=== PATIENT | male | born 1970 | race Caucasian/White ===

== ENCOUNTER 2017-02-06 20:33 | Observation (INO) | payer OTHER ==
--- NOTE | 2017-02-06 20:54 | EDPHY ---
H & P Stated Complaint: cat bite left hand 24 hrs ago with streaking, 3 doses of Augmentin HPI/ROS: Chief complaint: Cat bite to left arm with possible infection History of present illness: This is a 46-year-old male who presents to the emergency department for a cat bite to his left hand and believes he is developing an infection. Patient was bit on the left palm approximately a day ago. He did see his doctor and was started on Augmentin and has taken 3 doses already. However he is having increasing pain, swelling and redness to the palm. He has now noted red streaking up the arm. He states the cat is healthy. Immunizations are up-to-date. He is not sure if his tetanus is up-to- date. He denies associated signs or symptoms including no fevers, no chills, no abnormal coolness or paresthesias in the arm, he is still moving the arm well. No other complaints. Review of systems: A 10 point review of systems was obtained and other than described above was negative - Personal History Current Tetanus/Diphtheria Vaccine: No - Medical/Surgical History Hx Asthma: No Hx Chronic Respiratory Disease: No Hx Diabetes: No Hx Cardiac Disease: No Hx Renal Disease: No Hx Cirrhosis: No Hx Alcoholism: No Hx HIV/AIDS: No Hx Splenectomy or Spleen Trauma: No Other PMH: no PMH or PSH - Social History Smoking Status: Never smoked - Physical Exam Exam: General Appearance: Alert, Nontoxic. Eyes: Pupils equal and round no injection. Respiratory: Chest is nontender, lungs are clear to auscultation. Cardiac: regular rate and rhythm. Gastrointestinal: Abdomen is soft and nontender, no masses, bowel sounds normal. Musculoskeletal: Neck is supple and nontender. Extremities have full range of motion and are nontender. Skin: Puncture wounds to the thenar eminence since of the left hand consistent with bite. There is associated erythema and edema. There is lymphangitis to the level of the elbow. No induration or fluctuance to suggest drainable abscess. Constitutional: Initial Vital Signs Temperature (C) 36.9 C 02/06/17 20:37 Heart Rate 78 02/06/17 20:37 Respiratory Rate 16 02/06/17 20:37 Blood Pressure 139/86 H 02/06/17 20:37 O2 Sat (%) 98 02/06/17 20:37 O2 Delivery Mode Room Air Allergies/Adverse Reactions: morphine Allergy (Unknown, Verified 06/07/12 03:51) Home Medications: Medication Instructions Recorded Amoxicillin/Clavulanate Pot 875 mg PO BID 02/06/17 [Augmentin 875 MG TAB (*)] Herbals/Supplements -Info Only 1 ea PO DAILY 02/06/17 Multivitamins [Multivitamin (*)] 1 each PO DAILY 02/06/17 Medical Decision Making - Diagnostics Imaging Results: Imaging Impressions Hand X-Ray 02/06/17 20:55 Impression: Negative left hand radiographs. Imaging: I viewed and interpreted images myself ED Course/Re-evaluation: Patient is discussed with my secondary supervising physician Dr. Vasyl Chavira. Patient presents to the emergency department with an apparent cellulitis of the left hand with lymphangitis. He appears to be failing outpatient therapy as he has already been on Augmentin. Blood studies are obtained, initial chemistry panel likely spurus result, it is redrawn and normal. X-ray is obtained and negative for retained foreign body or other findings. Patient started on Unasyn. Patient is admitted to the hospitalist service for further evaluation and care. Differential Diagnosis: included but not limited to cellulitis, lymphangitis, abscess formation, unlikely necrotizing fasciitis - Data Points Medications Given: Discontinued Medications Sodium Chloride (Ns) 1,000 mls @ 0 mls/hr IV ONCE ONE; Wide Open PRN Reason: Protocol Stop: 02/06/17 20:56 Last Admin: 02/06/17 21:11 Dose: 1,000 mls Ampicillin Sodium/Sulbactam (Sodium 3 gm/ Sodium Chloride) 100 mls @ 200 mls/ hr IV EDNOW ONE PRN Reason: Protocol Stop: 02/06/17 21:24 Last Admin: 02/06/17 21:40 Dose: 100 mls Departure - Departure Disposition: [facility] Clinical Impression: Lymphangitis Cellulitis Qualifiers: Site of cellulitis: extremity Site of cellulitis of extremity: upper extremity Laterality: left Qualified Code(s): L03.114 - Cellulitis of left upper limb Condition: Good
[2017-02-06] MEDS ORDERED: AMPICILLIN/SULBACTAM 3 GM in NS 100 ML IV ONE (20:55)
[2017-02-06] MEDS ORDERED: NS 1,000 ML IV ONE (20:55)
[2017-02-06 21:39] LABS: % IMMATURE GRANULYOCYTES 0.4 % (0.0-1.1); ABSOLUTE IMMATURE GRANULOCYTES 0.04 10^3/uL (0.00-0.10); ADD DIFF? NO; ADD MORPH? NO; ADD SCAN? NO; ATYPICAL LYMPHOCYTE FLAG 20 (0-99); FRAGMENT RBC FLAG 0 (0-99); HEMATOCRIT 37.3 % (40.0-51.0); HEMOGLOBIN 12.9 g/dL (13.7-17.5); LEFT SHIFT FLG 0 (0-99); LIPEMIA HEMOLYSIS FLAG 90 (0-99); MEAN CELL HEMOGLOBIN 34.7 pg (27.9-34.1); MEAN CELL HEMOGLOBIN CONCENTR. 34.6 g/dL (32.4-36.7); MEAN CELL VOLUME 100.3 fL (81.5-99.8); MEAN PLATELET VOLUME 10.6 fL (8.7-11.7); PLATELET CLUMPS FLAG 10 (0-99); PLATELET COUNT 192 10^3/uL (150-400); RED BLOOD CELL COUNT 3.72 10^6/uL (4.40-6.38); RED CELL DISTRIBUTION WIDTH 12.8 % (11.5-15.2)
[2017-02-06] MEDS ORDERED: NS 50 ML BAG IV ONE (22:01)
[2017-02-06] MEDS ORDERED: ACETAMINOPHEN 325 MG TAB PO PRN (22:04)
[2017-02-06] MEDS ORDERED: ONDANSETRON 4 MG/2 ML VIAL IVP PRN (22:04)
[2017-02-06] MEDS ORDERED: TEMAZEPAM 15 MG CAP PO PRN (22:04)
[2017-02-06 22:05] LABS: ANION GAP 7 mEq/L (8-16); CALCIUM 6.1 mg/dL (8.5-10.4); CARBON DIOXIDE 18 mEq/l (22-31); CHLORIDE 114 mEq/L (97-110); CREATININE 0.7 mg/dL (0.7-1.3); GLOMERULAR FILTRATION RATE > 60; GLUCOSE 73 mg/dL (70-100); SODIUM 139 mEq/L (134-144)
[2017-02-06 22:08] LABS: POTASSIUM 2.3 mEq/L (3.5-5.2)
[2017-02-06] MEDS ORDERED: POTASSIUM Cl (KCl) 100 ML IV ONE (22:09)
[2017-02-06 22:45] LABS: ANION GAP 10 mEq/L (8-16); CALCIUM 9.5 mg/dL (8.5-10.4); CARBON DIOXIDE 23 mEq/l (22-31); CHLORIDE 101 mEq/L (97-110); GLOMERULAR FILTRATION RATE > 60; GLUCOSE 97 mg/dL (70-100); MAGNESIUM 1.8 mg/dL (1.6-2.3); POTASSIUM 3.8 mEq/L (3.5-5.2); SODIUM 134 mEq/L (134-144)
[2017-02-06 22:46] LABS: % IMMATURE GRANULYOCYTES 0.5 % (0.0-1.1); ABSOLUTE IMMATURE GRANULOCYTES 0.06 10^3/uL (0.00-0.10); ADD DIFF? NO; ADD MORPH? NO; ADD SCAN? NO; ATYPICAL LYMPHOCYTE FLAG 10 (0-99); FRAGMENT RBC FLAG 0 (0-99); HEMATOCRIT 39.8 % (40.0-51.0); HEMOGLOBIN 13.9 g/dL (13.7-17.5); LEFT SHIFT FLG 0 (0-99); LIPEMIA HEMOLYSIS FLAG 90 (0-99); MEAN CELL HEMOGLOBIN 34.7 pg (27.9-34.1); MEAN CELL HEMOGLOBIN CONCENTR. 34.9 g/dL (32.4-36.7); MEAN CELL VOLUME 99.3 fL (81.5-99.8); MEAN PLATELET VOLUME 10.8 fL (8.7-11.7); PLATELET CLUMPS FLAG 0 (0-99); PLATELET COUNT 217 10^3/uL (150-400); RED BLOOD CELL COUNT 4.01 10^6/uL (4.40-6.38); RED CELL DISTRIBUTION WIDTH 12.7 % (11.5-15.2)
--- NOTE | 2017-02-06 22:54 | GHP ---
[f rep st] HISTORY AND PHYSICAL DATE OF ADMISSION: 02/06/2017 CHIEF COMPLAINT: Cat bite. HISTORY OF PRESENT ILLNESS: This is a 46-year-old male with no significant past medical history, was bit by his own cat which he has had for about a month , in his left hand. After being bit at approximately 6:30 last night, he took a dose of Augmentin 500/125, that he had left over from a previous illness. This morning, he went to see his primary care doctor, who prescribed Augmentin, which he has taken 2 doses of today. This evening, he noticed redness extending up his left arm which brought him into the emergency department for further evaluation. Currently, he describes a moderate amount of pain in his left thumb, which is improved with a half of a Vicodin. He has not had any fevers or chills. He denies any numbness or weakness in his hand. PAST MEDICAL HISTORY: Spontaneous pneumothoraces as a child, treated with chest tubes. HOME MEDICATIONS: Reviewed, refer to [facility] for details. ALLERGIES: Morphine. SOCIAL HISTORY: He drinks alcohol occasionally. He denies any tobacco or illicit drug use. FAMILY HISTORY: Reviewed and noncontributory. REVIEW OF SYSTEMS: Comprehensive 10-point Review of Systems was done and was negative, except for as mentioned in the HPI. PHYSICAL EXAM: VITAL SIGNS: Blood pressure 139/86, pulse 78, respiratory rate 16, O2 saturation 98% on room air. Temperature afebrile. GENERAL: No acute distress. HEAD: Normocephalic, atraumatic. EYES: PERRLA. Sclerae anicteric. MOUTH: Moist mucous membranes. NECK: Supple. No lymphadenopathy. CARDIOVASCULAR: S1,S2. No murmurs, rubs, clicks, gallops. No JVD. No extremity edema. PULMONARY: Lungs are clear to auscultation and percussion bilaterally. No wheezes, rales, or rhonchi. ABDOMEN: Soft, nontender, nondistended. No guarding or rebound tenderness. Normoactive bowel sounds. EXTREMITIES: No clubbing or cyanosis. NEURO: Cranial nerves 2-12 grossly intact. No focal motor or sensory deficits. SKIN: There is erythema over his left thenar eminence with multiple puncture wounds. He also has multiple scratches over his forearm. There is lymphangitic streaking over the volar aspect of his forearm and a small amount of streaking over the volar surface of the upper arm. There is no axillary lymphadenopathy. There is good range of motion of the thumb. DIAGNOSTICS: WBC is 10.7, hemoglobin 12.9, hematocrit 37.3, platelets 192. Chemistries pending. Hand x-ray, which I visualized and personally interpreted , was negative for gas or foreign bodies. There was no fracture. ASSESSMENT AND PLAN: 1. This is a 46-year-old male presenting with left thenar eminence cat bite cellulitis with lymphangitic streaking without signs of sepsis. Plan: The patient will be admitted to the hospital where we will start IV Unasyn. He has failed outpatient treatment with Augmentin. We will monitor closely for worsening pain and cellulitis or abscess. We will defer consulting Hand Surgery at this time but this may need to be done in the morning. 2. Macrocytic anemia with reported history of occasional alcohol use. Plan: We will check iron studies and repeat a CBC in the morning. /[id number]/MODL and [id number], 02/06/17, [address] [facility]
[2017-02-06] MEDS ORDERED: TDAP ADULT 0.5 ML INJ (BOOSTRIX) IM ONE (23:02)
[2017-02-07] MEDS ORDERED: AMPICILLIN/SULBACTAM 3 GM in NS 100 ML IV SCH
[2017-02-07] MEDS: AMPICILLIN/SULBACTAM 3 GM in NS 100 ML IV SCH ×3 (03:35→15:26)
[2017-02-07 05:36] LABS: % IMMATURE GRANULYOCYTES 0.3 % (0.0-1.1); ABSOLUTE IMMATURE GRANULOCYTES 0.03 10^3/uL (0.00-0.10); ADD DIFF? NO; ADD MORPH? NO; ADD SCAN? NO; ATYPICAL LYMPHOCYTE FLAG 10 (0-99); FRAGMENT RBC FLAG 0 (0-99); HEMATOCRIT 39.8 % (40.0-51.0); LEFT SHIFT FLG 0 (0-99); LIPEMIA HEMOLYSIS FLAG 90 (0-99); MEAN CELL HEMOGLOBIN CONCENTR. 35.2 g/dL (32.4-36.7); MEAN CELL VOLUME 99.5 fL (81.5-99.8); MEAN PLATELET VOLUME 10.3 fL (8.7-11.7); PLATELET CLUMPS FLAG 0 (0-99); PLATELET COUNT 204 10^3/uL (150-400); RED CELL DISTRIBUTION WIDTH 12.8 % (11.5-15.2)
[2017-02-07] MEDS: oxyCODONE IR 5 MG TAB PO PRN ×2 (08:44→14:35)
[2017-02-07 08:50] VITALS: TEMP 97.8
[2017-02-07 11:44] VITALS: BP 106/78; PULSE 73; RESP 18; O2SAT 99
--- NOTE | 2017-02-07 17:12 | PDDCSUM ---
Discharge Summary Discharge Summary: DISCHARGE DIAGNOSES: -Cat bite related infection of the left hand with cellulitis and lymphangitic streaking -No clinical evidence of abscess HOSPITAL COURSE SUMMARY: This patient had a cat bite to the thenar eminence of his left hand approximately 3 days before admission. He started to get swelling and redness and started on some outpatient Augmentin on the day before presentation here. However on the day presentation here his hand swelling worsened with worsening redness and lymphangitic streaking on the volar aspect of his forearm. There was no clinical evidence of tenosynovitis or abscess or anything suggesting necrotic changes. He was admitted the hospital on observation status and treated overnight with IV Unasyn along with elevation of the hand. This led to quite remarkable improvement. At this time there is only very minimal swelling left with no remaining redness or warmth or tenderness. He has full range of motion of all of the fingers hand and wrist. There is no proximal adenopathy. There is no palpable fluctuance or other palpable abnormalities other than minimal swelling at the thenar eminence at this time. It is felt that he has had a cellulitis that is resolving. He has however warned of the possibility of progression to deep abscess and that he will need close follow-up of this. I did make an appointment with him to see Dr. Jaxon Hernandez in 3 days in clinic and he is aware that he should seek help if needed sooner either with Dr. Hernandez here in the ER. He will continue on with Augmentin 875 mg twice daily to complete a 10 day course of therapy. PENDING TEST RESULTS: None MEDICATION CHANGES: None FOLLOW-UP PLAN: Dr. Hernandez at 2:15 p.m. on February 10 Greater than 35 minutes bedside and care coordination time today
== END 2017-02-07 17:30 | disposition home or self-care (01) ==
LOC: F1N 23:01
PROVIDERS: ADMIT Family Medicine; ATTEND Internal Medicine
DX: L03.114 Cellulitis of left upper limb (principal); W55.01XA Bitten by cat, initial encounter; D53.9 Nutritional anemia, unspecified; Z23 Encounter for immunization
CPT/HCPCS: 73130; 90471; G0378; 96365; J0295

== ENCOUNTER → 2017-07-22 | Outpatient (CLI) | payer OTHER | LOC: BMCIMAGING 14:37 | PROVIDERS: ATTEND Family Medicine | DX: M25.572 Pain in left ankle and joints of left foot (principal); M79.89 Other specified soft tissue disorders ==

== ENCOUNTER 2018-07-21 21:44 | Emergency (ER) | payer OTHER ==
--- NOTE | 2018-07-21 22:13 | EDPHY ---
H & P Stated Complaint: VOMIT AND DIARRHEA TODAY Source: Patient Exam Limitations: No limitations - Personal History Current Tetanus/Diphtheria Vaccine: Yes - Medical/Surgical History Hx Asthma: No Hx Chronic Respiratory Disease: No Hx Diabetes: No Hx Cardiac Disease: No Hx Renal Disease: No Hx Cirrhosis: No Hx Alcoholism: No Hx HIV/AIDS: No Hx Splenectomy or Spleen Trauma: No Other PMH: KNEE SURGERY - Social History Smoking Status: Never smoked Time Seen by Provider: 07/21/18 22:12 HPI/ROS: HPI: This is a 47-year-old male who presents with Chief Complaint: Vomiting and diarrhea today Location: GI Quality: Vomiting and diarrhea Duration: Started this afternoon Signs and Symptoms: no fever, + nausea, + vomiting, no hematemesis, no blood in stool, no abdominal bloating, + diarrhea, no back pain, no urinary symptoms, no testicular/groin pain, no indigestion, no chest pain, no shortness of breath Timing: Acute, intermittent episodes Severity: Moderate Context: Patient presents with sudden onset this afternoon of nausea and vomiting approximately 5-10 times and diarrhea approximately 10 times. Patient reports abdominal cramping but no actual abdominal pain. He has no fever, urinary symptoms, testicular/groin pain. He has had no foreign travel. Denies recent antibiotic use or concern for food borne illness. Significant other at bedside ate the same breakfast and lunch today without any difficulty. Modifying Factors: None Comment: ROS: A comprehensive 10 system review of systems is otherwise negative aside from elements mentioned in the history of present illness. MEDICAL/SURGICAL/SOCIAL HISTORY: Medical history: Generally healthy. Does not take any regular medications. Surgical history: Knee arthroscopy Social history: Never smoked. Family history noncontributory. CONSTITUTIONAL: Nontoxic-appearing middle-aged white male, awake and alert, no obvious distress HEENT: Atraumatic and normocephalic, PERRL, EOMI. Nares patent; no rhinorrhea; no nasal mucosal edema. Tympanic membranes clear. Oropharynx clear, no exudate and moist pink mucosa. Airway patent. No lymphadenopathy. No meningismus. Cardiovascular: Normal S1/S2, regular rate, regular rhythm, without murmur rub or gallop. PULMONARY/CHEST: Symmetrical and nontender. Clear to auscultation bilaterally. Good air movement. No accessory muscle usage. ABDOMEN: Soft, nondistended, nontender, no rebound, no guarding, no peritoneal signs, no masses or organomegaly. No CVAT. EXTREMITIES: 2/2 pulses, strength 5/5, no deformities, no clubbing, no cyanosis or edema. NEUROLOGICAL: no focal neuro deficits. GCS 15. SKIN: Warm and dry, no erythema. no rash. Good capillary refill. (Laurel Vásquez) Constitutional: Initial Vital Signs Temperature (C) 36.6 C 07/21/18 21:47 Heart Rate 89 07/21/18 21:47 Respiratory Rate 18 07/21/18 21:47 Blood Pressure 111/77 07/21/18 21:47 O2 Sat (%) 97 07/21/18 21:47 O2 Delivery Mode Room Air Allergies/Adverse Reactions: No Known Allergies Allergy (Unverified 07/21/18 21:46) Home Medications: Medication Instructions Recorded Multivitamins [Multivitamin (*)] 1 each PO DAILY 02/06/17 LYSINE 07/21/18 Medical Decision Making ED Course/Re-evaluation: PHYSICIAN DOCUMENTATION: The patient was evaluated and managed by the Physician Supercharger Repair Supervisor. My co- signature indicates that I have reviewed this chart and I agree with the findings and plan of care as documented. I am the secondary supervising physician. (Anita Connors) Vital signs reviewed and stable upon arrival. No systemic signs. IV access and laboratory studies along with GI pathogen stool studies ordered. Abdomen is soft and nontender. Doubt surgical process and need for imaging. Given 2 L normal saline, IV promethazine 12.5 mg and IV Zofran 4 mg 2310: Labs reviewed. No signs of leukocytosis/anemia/platelet dysfunction/MICHELLE/ elevated LFTs/electrolyte imbalance/pancreatitis. After 3 hr in the emergency room, patient is unable to give stool sample. Reassessed patient who reports relief of symptoms and asking to be discharged home. Drinking liquids without any difficulty. This patient was seen under the supervision of my secondary supervising physician. I evaluated care for this patient independently. Discussed this patient with Dr. Connors who did not see the patient. (Laurel Vásquez) Differential Diagnosis: Abdominal pain including but not limited to appendicitis, cholecystitis, gastritis and urinary tract infection. (Laurel Vásquez) - Data Points Laboratory Results: Laboratory Results 07/21/18 22:30 07/21/18 22:30 07/21/1807/21/18 22:30 22:30 WBC 21.18 10^3/uL H 10^3/uL (3.80-9.50) RBC 4.81 10^6/uL 10^6/uL (4.40-6.38) Hgb 16.3 g/dL g/dL (13.7-17.5) Hct 46.9 % % (40.0-51.0) MCV 97.5 fL fL (81.5-99.8) MCH 33.9 pg pg (27.9-34.1) MCHC 34.8 g/dL g/dL (32.4-36.7) RDW 12.9 % % (11.5-15.2) Plt Count 286 10^3/uL 10^3/uL (150-400) MPV 10.4 fL fL (8.7-11.7) Neut % (Auto) 86.2 % H % (39.3-74.2) Lymph % (Auto) 7.5 % L % (15.0-45.0) [place] % (Auto) 4.9 % % (4.5-13.0) Eos % (Auto) 0.7 % % (0.6-7.6) Baso % (Auto) 0.3 % % (0.3-1.7) Nucleat RBC Rel Count 0.0 % % (0.0-0.2) Absolute Neuts (auto) 18.26 10^3/uL H 10^3/uL (1.70-6.50) Absolute Lymphs (auto) 1.59 10^3/uL 10^3/uL (1.00-3.00) Absolute Monos (auto) 1.04 10^3/uL H 10^3/uL (0.30-0.80) Absolute Eos (auto) 0.15 10^3/uL 10^3/uL (0.03-0.40) Absolute Basos (auto) 0.06 10^3/uL 10^3/uL (0.02-0.10) Absolute Nucleated RBC 0.00 10^3/uL 10^3/uL (0-0.01) Immature Gran % 0.4 % % (0.0-1.1) Immature Gran # 0.08 10^3/uL 10^3/uL (0.00-0.10) Sodium 139 mEq/L mEq/L (135-145) Potassium 4.6 mEq/L mEq/L (3.3-5.0) Chloride 103 mEq/L mEq/L (97-110) Carbon Dioxide 23 mEq/l mEq/l (22-31) Anion Gap 13 mEq/L mEq/L (6-14) BUN 23 mg/dL mg/dL (7-23) Creatinine 1.0 mg/dL mg/dL (0.7-1.3) Estimated GFR > 60 Glucose 140 mg/dL H mg/dL (70-100) Calcium 10.0 mg/dL mg/dL (8.5-10.4) Total Bilirubin 0.9 mg/dL mg/dL (0.1-1.4) Conjugated Bilirubin 0.2 mg/dL mg/dL (0.0-0.5) Unconjugated Bilirubin 0.7 mg/dL mg/dL (0.0-1.1) AST 29 IU/L IU/L (17-59) ALT 31 IU/L IU/L (21-72) Alkaline Phosphatase 77 IU/L IU/L (38-126) Total Protein 8.1 g/dL g/dL (6.3-8.2) Albumin 5.0 g/dL g/dL (3.5-5.0) Lipase 126 IU/L IU/L (23-300) Medications Given: Discontinued Medications Sodium Chloride (Ns) 1,000 mls @ 0 mls/hr IV EDNOW ONE; Wide Open PRN Reason: Protocol Stop: 07/21/18 22:28 Last Admin: 07/21/18 22:31 Dose: 1,000 mls Sodium Chloride (Ns) 1,000 mls @ 0 mls/hr IV EDNOW ONE; Wide Open PRN Reason: Protocol Stop: 07/21/18 22:36 Last Admin: 07/21/18 22:40 Dose: 1,000 mls Ondansetron HCl (Zofran) 4 mg IVP EDNOW ONE Stop: 07/21/18 22:28 Last Admin: 07/21/18 22:41 Dose: 4 mg Ondansetron HCl (Zofran Odt 4 Mg Prepack#2) 1 btl TAKEHOME EDNOW ONE Stop: 07/21/18 23:57 Last Admin: 07/22/18 00:00 Dose: 1 btl Promethazine HCl (Phenergan) 12.5 mg IVP EDNOW ONE Stop: 07/21/18 22:36 Last Admin: 07/21/18 22:41 Dose: 12.5 mg Promethazine HCl (Phenergan 25 Mg Prepack #4) 1 btl TAKEHOME EDNOW ONE Stop: 07/21/18 23:50 Last Admin: 07/22/18 00:01 Dose: 1 btl Departure - Departure Disposition: Home, Routine, Self-Care Clinical Impression: Gastroenteritis Condition: Good Instructions: Promethazine (By injection), Gastroenteritis (ED) Additional Instructions: Consume a minimum of 8-10 glasses of water or electrolyte fluid replacement drinks that include Gatorade, Powerade, Pedialyte. Eat a bland diet for the next 48 hours and then slowly advance as tolerated. Take Zofran 1 tab every 4 hours as needed for nausea, vomiting. Take Promethazine every 4-6 hours as needed for nausea, vomiting if not relieved by Zofran. Take Imodium [id number] every 6 hr as needed for diarrhea. Return to the Emergency Room if symptoms do not resolve in the next 72 hours, you spike a fever > 102 F, or experience intractable abdominal pain/nausea/ vomiting. Referrals: Jaxon Hernandez MD [Primary Care Provider] - As per Instructions
[2018-07-21] MEDS ORDERED: ONDANSETRON 4 MG/2 ML VIAL ONE (22:24)
[2018-07-21] MEDS ORDERED: NS 1,000 ML IV ONE ×2 (22:27→22:35)
[2018-07-21] MEDS ORDERED: PROMETHAZINE HCL 25 MG/ML INJ IVP ONE (22:35)
[2018-07-21] MEDS: ONDANSETRON 4 MG/2 ML VIAL IVP ONE ×2 (22:35→22:41)
[2018-07-21 22:43] LABS: PLATELET COUNT 286 10^3/uL (150-400)
[2018-07-21] MEDS ORDERED: PROMETHAZINE 25 MG PREPACK #4 BTL TAKEHOME ONE (23:49)
[2018-07-21 23:55] VITALS: BP 112/68
[2018-07-21] MEDS ORDERED: ONDANSETRON 4MG PREPACK#2 BTL TAKEHOME ONE (23:56)
== END 2018-07-22 00:08 | disposition home or self-care (01) ==
DX: K52.9 Noninfective gastroenteritis and colitis, unspecified (principal); E86.9 Volume depletion, unspecified
CPT/HCPCS: 96374; J2405; J2550

== ENCOUNTER 2018-08-19 20:09 | Emergency (ER) | payer OTHER ==
[2018-08-19] MEDS ORDERED: NS 1,000 ML IV ONE ×2 (20:43→20:44)
[2018-08-19] MEDS ORDERED: GLUCAGON HCL 1 MG VIAL IVP ONE (20:43)
[2018-08-19] MEDS ORDERED: ONDANSETRON 4 MG/2 ML VIAL IVP ONE ×2 (20:43→20:45)
[2018-08-19] MEDS ORDERED: LORazepam 2 MG/ML INJ IVP ONE ×2 (20:44)
--- NOTE | 2018-08-19 20:45 | EDPHY ---
H & P Smoking Status: Never smoked Time Seen by Provider: 08/19/18 20:35 HPI/ROS: CHIEF COMPLAINT: Esophageal foreign body HISTORY OF PRESENT ILLNESS: Patient is a 47-year-old male here with his with concern for retained esophageal foreign body. States that he and his for a eating food and had the sensation of food getting stuck in his chest. This is approximately 3 hr ago and he has not been able to tolerate any solids or liquids since this time. They attempted to drink juan jose niall but he was unable tolerate this and threw up. Reports mild chest pain. He has never had this happen before. He takes no prescribed medication. He is not diabetic. REVIEW OF SYSTEMS: Constitutional: No fever, no chills. Eyes: No discharge. ENT: + sore throat. Cardiovascular: No chest pain, no palpitations. Respiratory: No cough, no shortness of breath. Gastrointestinal: no abdominal pain, + vomiting. Genitourinary: No hematuria. Musculoskeletal: No back pain. Skin: No rashes. Neurological: No headache. (Lakhwinder Perla) Physical Exam: General Appearance: Alert and no distress. ENT: normal dentition. No tonsillar exudate or swelling. Eyes: Pupils equal and round no injection. Respiratory: Chest is nontender, lungs are clear to auscultation. Cardiac: regular rate and rhythm. No lower extremity edema Gastrointestinal: Abdomen is soft and nontender, no masses, bowel sounds normal. Musculoskeletal: Neck is supple and nontender. Extremities have full range of motion and are nontender without deformity Skin: No rashes or lesions. Neuro: Cranial nerves grossly intact. No nystagmus. Normal [id number] testing. No ulnar drift. Equal grasp bilateral hands. Ambulatory. (Lakhwinder Perla) Constitutional: Initial Vital Signs Temperature (C) 36 C 08/19/18 20:12 Heart Rate 79 08/19/18 20:12 Respiratory Rate 20 08/19/18 20:12 Blood Pressure 129/87 H 08/19/18 20:12 O2 Sat (%) 99 08/19/18 20:12 O2 Delivery Mode Room Air Allergies/Adverse Reactions: No Known Allergies Allergy (Unverified 08/19/18 20:11) Home Medications: Medication Instructions Recorded Multivitamins [Multivitamin (*)] 1 each PO DAILY 02/06/17 LYSINE 07/21/18 Medical Decision Making - Diagnostics Imaging Results: Imaging Impressions Chest X-Ray 08/19/18 20:41 Impression: No radiopaque esophageal foreign body identified. No recurrent pneumothorax. Soft Tissue Neck X-Ray 08/19/18 20:41 Impression: No definite foreign body identified. ED Course/Re-evaluation: The patient was evaluated and managed by the physician's retail loan originator assistant. My cosignature indicates that I reviewed the chart and I agree with the findings and plan of care as documented. I am the secondary supervising physician. ( Madison Morales) 47-year-old male here with esophageal foreign body. He was given IV fluids, Zofran, Ativan, glucagon. He was not tolerating p.o. So I discussed case with GI who was going to take him for upper endoscopy but ultimately he was actually able to pass the food bolus and was tolerating p.o. No acute distress. X-ray revealed no esophageal perforation (Lakhwinder Perla) - Data Points Medications Given: Discontinued Medications Fentanyl (Sublimaze) 50 mcg IVP EDNOW ONE Stop: 08/19/18 21:42 Last Admin: 08/19/18 21:54 Dose: 50 mcg Glucagon (Glucagon) 1 mg IVP EDNOW ONE Stop: 08/19/18 20:44 Last Admin: 08/19/18 20:52 Dose: 1 mg Sodium Chloride (Ns) 1,000 mls @ 0 mls/hr IV EDNOW ONE; Wide Open PRN Reason: Protocol Stop: 08/19/18 20:44 Last Admin: 08/19/18 20:51 Dose: 1,000 mls Sodium Chloride (Ns) 1,000 mls @ 0 mls/hr IV ONCE ONE PRN Reason: Wide Open Stop: 08/19/18 20:45 Last Admin: 08/19/18 20:53 Dose: Not Given Lorazepam (Ativan Injection) 0.5 mg IVP EDNOW ONE Stop: 08/19/18 20:45 Last Admin: 08/19/18 20:53 Dose: Not Given Lorazepam (Ativan Injection) 0.5 mg IVP EDNOW ONE Stop: 08/19/18 20:45 Last Admin: 08/19/18 20:52 Dose: 0.5 mg Ondansetron HCl (Zofran) 4 mg IVP ONCE ONE Stop: 08/19/18 20:44 Last Admin: 08/19/18 20:52 Dose: 4 mg Ondansetron HCl (Zofran) 4 mg IVP EDNOW ONE Stop: 08/19/18 20:46 Last Admin: 08/19/18 20:53 Dose: Not Given Departure - Departure Disposition: Home, Routine, Self-Care Clinical Impression: Esophageal foreign body Condition: Good Instructions: Esophageal Foreign Body (ED) Additional Instructions: Eat with caution upon leaving ED and this weekend. Please come back to ED if increasing trouble breathing or feelings as if you are choking. Please chew food thoroughly. Referrals: Jaxon Hernandez MD [Primary Care Provider] - As per Instructions
[2018-08-19] MEDS ORDERED: fentaNYL 100 MCG/2 ML INJ IVP ONE (21:41)
[2018-08-19] MEDS ORDERED: fentaNYL 100 MCG/2 ML INJ ONE (22:02)
[2018-08-19] MEDS ORDERED: MIDAZOLAM 2 MG/2 ML VIAL ONE (22:02)
--- NOTE | 2018-08-19 22:39 | GCON ---
OUTPATIENT CONSULTATION NOTE REQUESTING PHYSICIAN: Dr. Jamari Perla and the [facility] emergency room. REASON FOR CONSULTATION: Esophageal foreign body. CHIEF COMPLAINT: Difficulty swallowing. HISTORY OF PRESENT ILLNESS: Briefly, the patient is a healthy 47-year-old male who had difficulty swallowing on his evening meal. After that meal and for approximately 3-4 hours since, he has been unable to tolerate any solids or liquids. He attempted to clear the obstruction with carbonated beverages, as well as self-induced vomiting, but was unable to do so. He reports some mild chest pain. In the emergency room, he received some muscle relaxants, as well as glucagon but has yet to pass the object. Reports no prior history of foreign body in the esophagus. PAST MEDICAL HISTORY: Negative for dysphagia. MEDICATIONS: Outpatient medicines included only multivitamins. SOCIAL HISTORY: He does not smoke. FAMILY HISTORY: Negative for swallowing disorders. REVIEW OF SYSTEMS: A complete 10-system review was undertaken with the patient and is negative except for the pertinent positives and negatives detailed in the history of present illness. PHYSICAL EXAM: GENERAL: This is a well-developed male, in no apparent distress. HEENT: His pupils are equal, round, reactive to light and accommodation. Sclerae are nonicteric. His oropharynx is clear. NECK: Supple without lymphadenopathy. HEART: Regular, without murmurs. ABDOMEN: Soft, nontender, with normoactive bowel sounds. EXTREMITIES: Free of cyanosis , clubbing, and edema. NEURO: Grossly nonfocal. In the emergency room he underwent soft tissue neck x-ray, as well as chest x- ray. These exams were both nondiagnostic. IMPRESSION AND RECOMMENDATIONS: The patient has had an episode of food impaction related to his evening meal. This is not resolving spontaneously. I recommend he undergo upper endoscopy with disimpaction. Pending the results of his endoscopy, he is likely to need a followup upper endoscopy with dilation. ADDENDUM: During our evaluation, prior to EGD, the food bolus passed. Endoscopy was therefore deferred and patient was dc'd home with GI EGD follow- up. Rx for PPI was given. /[id number]/MODL MTDD
[2018-08-19 22:54] VITALS: BP 122/67
== END 2018-08-19 22:54 | disposition home or self-care (01) ==
DX: T18.108A Unspecified foreign body in esophagus causing other injury, initial encounter (principal)
CPT/HCPCS: 96374; J1610; J2060; J2250; J2405; J3010